=== PATIENT | female | born 1985 | race Two or more races ===

== ENCOUNTER 2020-09-17 22:37 | Emergency (ER) | payer OTHER ==
[~2020-09-17] VITALS: Ht 154.9 cm; Wt 63.5 kg
== END 2020-09-18 00:36 | disposition home or self-care (01) ==
LOC: ER 22:37
DX: S61.422A Laceration with foreign body of left hand, initial encounter (principal); W25.XXXA Contact with sharp glass, initial encounter; Y93.89 Activity, other specified; Y92.69 Other specified industrial and construction area as the place of occurrence of the external cause; Y99.8 Other external cause status

== ENCOUNTER 2020-11-04 20:25 | Emergency (ER) | payer OTHER ==
[~2020-11-04] VITALS: Ht 147.3 cm; Wt 61.2 kg
[2020-11-04] MEDS ORDERED: SINGULAIR10 MG (21:29)
== END 2020-11-05 00:17 | disposition home or self-care (01) ==
LOC: ER 20:25
DX: M25.571 Pain in right ankle and joints of right foot (principal); M79.674 Pain in right toe(s); M79.671 Pain in right foot